=== PATIENT | male | born 2000 | race Caucasian/White ===

== ENCOUNTER 2021-01-25 23:48 | Observation (INO) | payer SELFPAY ==
[2021-01-25 23:51] VITALS: BP 138/76; PULSE 90; RESP 16; TEMP 36.8; O2SAT 98; BMI 31.8
[2021-01-26] VITALS (7 sets, daily range): BP systolic 104–136; BP diastolic 58–84; PULSE 41–98; RESP 14–18; TEMP 36.7–37; O2SAT 96–100
[2021-01-26 00:10] LABS: Basophils % 0.4 %; Eosinophils # 0.1 10^3/uL (0.0-0.8); Eosinophils % 0.8 %; Hematocrit 47.4 % (42.0-52.0); Lymphocytes # 1.2 10^3/uL (1.5-6.5); Lymphocytes % 12.6 %; Mean Corpuscular HGB Conc 33.8 g/dL (30.0-36.0); Mean Corpuscular Hemoglobin 29.5 pg (28.0-34.0); Mean Corpuscular Volume 87.3 fL (80-94); Mean Platelet Volume 11.4 fL (7.4-10.4); Monocytes # 0.5 10^3/uL (0.2-0.9); Monocytes % 4.8 %; Neutrophils # 7.64 10^3/uL (1.8-8.0); Neutrophils % 81.1 %; Nucleated Red Blood Cells % 0 %; Platelet Count 252 10^3/cmm (130-400); Red Blood Count 5.43 10^6/uL (4.1-5.3); White Blood Count 9.4 10^3/uL (4.5-13.0)
--- NOTE | 2021-01-26 00:13 | W.ED.PSYCH ---
Documented by User: DEBRA Chávez 01/26/21 01:24 HPI - Psych General: Chief Complaint: Psychiatric Symptoms Stated Complaint: SI Time Seen by Provider: 01/25/21 23:53 Source: patient Mode of arrival: EMS Limitations: no limitations History of Present Illness: HPI Narrative: Patient is a 20-year-old male who presents to ED today for with a complaint of suicidal ideations. Patient tells me he has several life stressors including being shunned from friends and family and a girlfriend who apparently left him this evening. He tells me he has no specific plan. He does have a history of self harming behaviors. No previous suicide attempts. Patient is tearful during exam. He admits to occasional alcohol use. Denies drug use MD complaint: suicidal ideation and feels depressed Onset (ago): day(s) Duration: constant History of same: Yes Relieving factors: none Context: significant life stressor Associated psychiatric symptoms: depression and suicidal ideation Associated symptoms: Reports suicidal ideation; Deny auditory hallucinations, visual hallucinations, depression or homicidal ideation Treatments prior to arrival: none If self harm: admits thoughts of self harm Review of Systems Const: Denies: fever(s) or chills Card: Denies: chest pain, palpitations, lightheadedness or syncope Resp: Denies: dyspnea GI: Denies: abdominal pain, nausea, vomiting or diarrhea Skin/Breast: Denies: rash Neuro: Denies: headache(s) Psych: Reports: hopelessness and suicidal ideation; Denies: anxiety, depression, panic attacks, paranoia, visual hallucinations, auditory hallucinations or homicidal ideation Physical Exam Const: COMMON NORMALS: no acute distress, patient oriented x3, alert and well nourished GENERAL APPEARANCE: cooperative and well kempt Resp: COMMON NORMALS: normal respiratory effort and clear to auscultation bilaterally AUSCULTATION: clear to auscultation bilaterally Cardio: COMMON NORMALS: regular rate and regular rhythm RATE: regular rate RHYTHM: regular rhythm Neuro: COMMON NORMALS: patient oriented x3 SENSORIUM/ORIENTATION: Yes alert Psych: COMMON NORMALS: mental status grossly normal, Normal thought process present, cooperative, normal affect, speech normal, activity/motor behavior normal, denies hallucinations and denies homicidal ideation APPEARANCE: Yes grossly normal and Yes well kempt ATTITUDE: Yes calm ACTIVITY/MOTOR BEHAVIOR: Yes appropriate eye contact and No psychomotor agitation SPEECH: Yes normal speech MOOD & AFFECT: Yes sad and Yes tearful THOUGHT PROCESS: Normal thought process present THOUGHT CONTENT: Yes Normal thought content present ATTENTION/CONCENTRATION: Yes attention grossly intact and Yes concentration grossly intact MEMORY/COGNITION: Yes memory grossly intact and Yes cognition grossly intact INSIGHT: Good insight present (Psych) JUDGEMENT: Good judgement present (Psych) Course Consultations: Consultation #1: Dr. Wright-accepts to [facility] Vital Signs: Vital signs: Vital Signs Temperature 98.3 F 01/25/21 23:51 Pulse Rate 90 01/25/21 23:51 Respiratory Rate 16 01/25/21 23:51 Blood Pressure 138/76 01/25/21 23:51 Pulse Oximetry 98 01/25/21 23:51 MDM - Psych MDM Narrative: Medical decision making narrative: Patient wants to go to [facility] voluntarily. Lab Data: Labs: Lab Results 01/25/21 01/25/21 01/26/21 Range/Units 23:59 23:59 01:09 WBC 9.4 (4.5-13.0) 10^3/ uL RBC 5.43 H (4.1-5.3) 10^6/u L Hgb 16.0 (11.7-16.6) g/dL Hct 47.4 (42.0-52.0) % MCV 87.3 (80-94) fL MCH 29.5 (28.0-34.0) pg MCHC 33.8 (30.0-36.0) g/dL RDW 12.0 L (12.1-15.1) % Plt Count 252 (130-400) 10^3/c mm MPV 11.4 H (7.4-10.4) fL Neut % (Auto) 81.1 % Lymph % (Auto) 12.6 % [place] % (Auto) 4.8 % Eos % (Auto) 0.8 % Baso % (Auto) 0.4 % Neut # (Auto) 7.64 (1.8-8.0) 10^3/u L Lymph # (Auto) 1.2 L (1.5-6.5) 10^3/u L [place] # (Auto) 0.5 (0.2-0.9) 10^3/u L Eos # (Auto) 0.1 (0.0-0.8) 10^3/u L Baso # (Auto) 0.0 (0.0-0.1) 10^3/u L Nucleated RBC % (a uto) 0 % Nucleated RBCs # 0.0 /100WBC Sodium 139 (136-145) mmol/L Potassium 4.0 (3.5-5.1) mmol/L Chloride 102 (98-107) mmol/L Carbon Dioxide 26 (22-29) mmol/L Anion Gap 15.0 (5-19) BUN 8 (6-20) mg/dL Creatinine 0.7 (0.7-1.2) mg/dL GFR Calculation 143.8 H (90-130) mL/min Glucose 108 (65-115) mg/dL Calculated Osmolal ity 287 (285-295) mOsm/k g Calcium 8.8 (8.5-10.5) mg/dL Total Bilirubin 0.5 (0.15-1.2) mg/dL AST 20 (0-40) U/L ALT 20 (0-41) U/L Alkaline Phosphata se 83 (40-130) IU/L Total Protein 6.9 (6.6-8.7) g/dL Albumin 4.5 (3.5-5.2) g/dL Globulin 2.4 (1.3-4.6) g/dL Salicylates < 0.3 L (3-10) mg/dL Urine Opiates Scre en Negative (Negative) ng/mL Acetaminophen < 5.0 L (10-30) ug/mL Ur Barbiturates Sc reen Negative (Negative) ng/mL Ur Phencyclidine S crn Negative (Negative) ng/mL Ur Amphetamines Sc reen Negative (Negative) ng/mL U Benzodiazepines Scrn Negative (Negative) ng/mL Urine Cocaine Scre en Negative (Negative) ng/mL U Marijuana (THC) Screen Negative (Negative) ng/mL Ethyl Alcohol < 10 (0-10) mg/dL Discharge Plan Discharge Patient Disposition: Admitted As Inpatient Clinical Impression: Suicidal ideation Condition: Stable Coding Level of Care Code ED Cut In Station Operator for Joanng Fwd Exam Expanded Problem Focused Documented by User: Lazarojose luis Trujillo DO 01/26/21 02:28 HPI - Psych General: Chief Complaint: Psychiatric Symptoms Stated Complaint: SI Time Seen by Provider: 01/25/21 23:53 Course Vital Signs: Vital signs: Vital Signs Temperature 98.3 F 01/25/21 23:51 Pulse Rate 90 01/25/21 23:51 Respiratory Rate 16 01/25/21 23:51 Blood Pressure 138/76 01/25/21 23:51 Pulse Oximetry 98 01/25/21 23:51 MDM - Psych MDM Narrative: Medical decision making narrative: 20-year-old male originally seen by Mrs. Sosa?MISSY Arriola. I agree with her history, evaluation, and treatment. Having suicidal ideations, with calm and cooperative during his ER stay. He is admitted to the [facility] after being determined medically stable. Lab Data: Labs: Lab Results 01/25/21 01/25/21 01/26/21 Range/Units 23:59 23:59 01:09 WBC 9.4 (4.5-13.0) 10^3/ uL RBC 5.43 H (4.1-5.3) 10^6/u L Hgb 16.0 (11.7-16.6) g/dL Hct 47.4 (42.0-52.0) % MCV 87.3 (80-94) fL MCH 29.5 (28.0-34.0) pg MCHC 33.8 (30.0-36.0) g/dL RDW 12.0 L (12.1-15.1) % Plt Count 252 (130-400) 10^3/c mm MPV 11.4 H (7.4-10.4) fL Neut % (Auto) 81.1 % Lymph % (Auto) 12.6 % [place] % (Auto) 4.8 % Eos % (Auto) 0.8 % Baso % (Auto) 0.4 % Neut # (Auto) 7.64 (1.8-8.0) 10^3/u L Lymph # (Auto) 1.2 L (1.5-6.5) 10^3/u L [place] # (Auto) 0.5 (0.2-0.9) 10^3/u L Eos # (Auto) 0.1 (0.0-0.8) 10^3/u L Baso # (Auto) 0.0 (0.0-0.1) 10^3/u L Nucleated RBC % (a uto) 0 % Nucleated RBCs # 0.0 /100WBC Sodium 139 (136-145) mmol/L Potassium 4.0 (3.5-5.1) mmol/L Chloride 102 (98-107) mmol/L Carbon Dioxide 26 (22-29) mmol/L Anion Gap 15.0 (5-19) BUN 8 (6-20) mg/dL Creatinine 0.7 (0.7-1.2) mg/dL GFR Calculation 143.8 H (90-130) mL/min Glucose 108 (65-115) mg/dL Calculated Osmolal ity 287 (285-295) mOsm/k g Calcium 8.8 (8.5-10.5) mg/dL Total Bilirubin 0.5 (0.15-1.2) mg/dL AST 20 (0-40) U/L ALT 20 (0-41) U/L Alkaline Phosphata se 83 (40-130) IU/L Total Protein 6.9 (6.6-8.7) g/dL Albumin 4.5 (3.5-5.2) g/dL Globulin 2.4 (1.3-4.6) g/dL Salicylates < 0.3 L (3-10) mg/dL Urine Opiates Scre en Negative (Negative) ng/mL Acetaminophen < 5.0 L (10-30) ug/mL Ur Barbiturates Sc reen Negative (Negative) ng/mL Ur Phencyclidine S crn Negative (Negative) ng/mL Ur Amphetamines Sc reen Negative (Negative) ng/mL U Benzodiazepines Scrn Negative (Negative) ng/mL Urine Cocaine Scre en Negative (Negative) ng/mL U Marijuana (THC) Screen Negative (Negative) ng/mL Ethyl Alcohol < 10 (0-10) mg/dL Discharge Plan Discharge Patient Disposition: Admitted As Inpatient Clinical Impression: Suicidal ideation Condition: Stable Coding Level of Care Code ED Cut In Station Operator for Chg Fwd Exam Expanded Problem Focused
[2021-01-26 00:42] LABS: Alanine Aminotransferase 20 U/L (0-41); Albumin Level 4.5 g/dL (3.5-5.2); Alkaline Phosphatase 83 IU/L (40-130); Aspartate Amino Transferase 20 U/L (0-40); Blood Urea Nitrogen 8 mg/dL (6-20); Calcium 8.8 mg/dL (8.5-10.5); Carbon Dioxide 26 mmol/L (22-29); Chloride 102 mmol/L (98-107); Globulin 2.4 g/dL (1.3-4.6); Glomerular Filtration Rate 143.8 mL/min (90-130); Glucose 108 mg/dL (65-115); Osmolality Calculated 287 mOsm/kg (285-295); Sodium 139 mmol/L (136-145); Total Bilirubin 0.5 mg/dL (0.15-1.2); Total Protein 6.9 g/dL (6.6-8.7)
[2021-01-26 00:45] LABS: Acetaminophen < 5.0 ug/mL (10-30); Alcohol Level < 10 mg/dL (0-10); Salicylate < 0.3 mg/dL (3-10)
[2021-01-26 01:37] LABS: Amphetamines Screen Urine Negative (Negative); Barbiturates Screen Urine Negative (Negative); Benzodiazepines Screen Urine Negative (Negative); Cocaine Screen Urine Negative (Negative); Opiate Screen Urine Negative (Negative); PCP Screen Urine Negative (Negative); THC Screen Urine Negative (Negative)
[2021-01-26] MEDS: hyDROXYzine 25 mg Capsule 50 MG PO (12:36)
--- NOTE | 2021-01-26 12:37 | PC.NURSE ---
Administered Vistaril 50mg PO for increasing anxiety. Patient has been in his room sitting on the floor crying and then he paces the hallways. Nurse will continue to monitor.
[2021-01-26] MEDS: nicotine 2 mg Gum BUCCAL (18:36)
--- NOTE | 2021-01-26 18:55 | P.SS_ITS ---
Short Stay Summary Providers Date of Admit/Discharge: 01/27/21 Attending Provider: Anthony Wright MD Chief Complaint: SI HPI History of Present Illness LIT BRISENO is a 20 year old male who presented to the emergency department with the following report: Chief Complaint: Psychiatric Symptoms Stated Complaint: SI Time Seen by Provider: 01/25/21 23:53 Source: patient Mode of arrival: EMS Limitations: no limitations History of Present Illness: HPI Narrative: Patient is a 20-year-old male who presents to ED today for with a complaint of suicidal ideations. Patient tells me he has several life stressors including being shunned from friends and family and a girlfriend who apparently left him this evening. He tells me he has no specific plan. He does have a history of self harming behaviors. No previous suicide attempts. Patient is tearful during exam. He admits to occasional alcohol use. Denies drug use complaint: suicidal ideation and feels depressed Onset (ago): day(s) Duration: constant History of same: Yes Relieving factors: none Context: significant life stressor Associated psychiatric symptoms: depression and suicidal ideation Associated symptoms: Reports suicidal ideation; Deny auditory hallucinations, visual hallucinations, depression or homicidal ideation Treatments prior to arrival: none If self harm: admits thoughts of self harm. He was admitted to the neuropsychiatric unit for definitive treatment of those issues. Lit presents today reporting that he is never been in a psychiatric hospital, he is never really been on psychiatric medications, he is never really had a therapist or any kind of outpatient treatment. He denies any history of suicide attempts. He reports that everything, got out of hand with his living situation. He reports he got in a fight/argument with some friend and her family. He had been living there for a little while and is not even from this area. A reports just being sad and they want to go home. He reports that he said something that should have said and gave the impression that he was suicidal but he denies having any suicidal thinking at this time and reports he just will struggling with his anger. He denies any desire for inpatient hospitalization. He denies any interest in exploring medications for anger management or any of those tendencies. He noted that he is a voluntary patient and would like to discharge if at all possible. Psychiatric history: As above. Substance abuse history: He reports that he smokes about a pack of cigarettes every 6 days or so, he has alcohol once a while, he denies marijuana use or any other illicit drug use he is never been to rehab and never had a DUI. Family history: Endorses mental health and addiction issues on his father side and endorsed that his father had some suicide attempts but denies other family history. Developmental history: He denies any issues with his mother's with him no other problems with the or delivery. Walking talk to met developmental milestones on time but we did have to have a surgery to fix his colon and rectum as well 3-month-old. He endorses that he may have had some speech therapy and was in special education classes. Psychosocial history: He reports his mother and father were but they got later on. That he has not older sibling and a younger sibling there is a product of the same union having a brother and a sister. He denies having any other half siblings through his mom and had a half brother through his dad is now . He reports his childhood was same ole and there was no emotional, physical or sexual abuse. 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 He endorses being a heterosexual but is not sure how long the relationship has been. He is never , has never had biological children, he is never been in the and he denies any congregational Chris system. He reports his longest employment was over a year [employer]. He currently is trying to figure out his living situation is going to be. Legal history: He denies ever being in [facility] or having major legal peril. Medical history: He denies any significant medical issues. Mental status examination: This is an overweight versus obese white male in hospital scrubs with limited eye contact and adequate grooming. No abnormal movements except for mild psychomotor retardation. Cooperative with exam in mild to moderate distress. Speech was decreased rate and volume and childlike. Mood described as almost canceled to go home, affect sad. Thought process organized. Thought content: Patient denied suicidal or homicidal ideation, there were no delusions reported or noted, he denied any auditory or visual hallucinations. Attention and co ncentration appeared intact and memory was mostly reliable but none were formally tested. He is alert and oriented x3. Insight and judgment are fair, impulse control is limited, and intellectual ability was limited versus impaired. Assessment/plan: This is a 20-year-old white male with a long history of intellectual limitations but denying significant history of mental health treatment who presents with a conflict with his living arrangement which he reports led to him making suicidal threats he currently denies and he is interested in discharge. 1. Continue current medication. 2. Continue every 15 minute checks for safety. 3. Encourage individual, group and milieu therapies. 4. We will get collateral information to ensure there are no concerns about his safety but should be a limiting factor and otherwise allowed to discharge. Home Meds/Allergies Home Medications and Allergies Home Medications Medication Instructions Recorded Confirmed Type No Known Home Medications 01/25/21 01/25/21 History Allergies Allergy/AdvReac Type Severity Reaction Status Date / Time No Known Allergies Allergy Verified 01/25/21 23:51 Vitals/I&O/Wt Last Vital Signs Temp 98.6 F 01/26/21 14:00 Pulse 59 L 01/26/21 14:00 Resp 16 01/26/21 14:00 BP 117/70 01/26/21 14:00 Pulse Ox 98 01/26/21 14:00 Weight last 48 hrs Weight 81.647 kg Diagnoses at Discharge Discharge Diagnosis (1) Suicidal ideation: Status: Acute (2) Adjustment disorder with mixed disturbance of emotions and conduct: Status: Acute (3) Intellectual disability: Status: Acute (4) Borderline intellectual functioning: Status: Acute Discharge Plan Discharge Patient Disposition: Home Condition: Stable Prescriptions: Continued No Known Home Medications RF: 0 Discharge Orders: Discharge Order (Routine); Ordered 01/26/21 Ordered By: Anthony Wright Discharge Diet: Regular Discharge Activity: Resume usual activity Patient Instructions: Opioid Safety Attestations Medical Necessity Statement*: Inpatient hospitalization is no longer medically necessary or the clinically appropriate event at this time. Patient would benefit from inpatient assistance but is a voluntary patient lacking credible lethality so he will be allowed to discharge. Time Spent in Patient Care*: greater than 30 min Specific Discharge Activities: Specific discharge activities: educating patient, discussing with foster care case manager/social workers/dc planners, documenting/other paperwork and evaluating patient/reviewing data Status at Discharge: Cognitive status at discharge: mildly impaired cognition , Behavioral status at discharge: cooperative , Functional status at discharge: independent ambulation Overall status at discharge: patient is back to baseline Quality Metrics Clinical Quality Measures: During this hospital stay, did patient experience: None Coding Level of Care Code Acute [employer] Rep for Chg Fwd Diagnoses Suicidal ideation R45.851 Adjustment disorder with mixed disturbance of emotions and conduct F43.25 Intellectual disability F79 Borderline intellectual functioning R41.83
[2021-01-26] MEDS: blistex lip oint 7 gm Tube 1 APPLIC TOPICAL (22:02)
[2021-01-27 06:00] VITALS: BP 102/63; PULSE 80; RESP 18; TEMP 36.6; O2SAT 98
== END 2021-01-27 11:26 | disposition home or self-care (01) ==
LOC: ER 01-26 01:23 → NP 01-26 05:46
PROVIDERS: Physician Assistant; Admitting Provider Psychiatry & Neurology Psychiatry; Emergency Provider Emergency Medicine; Visit Provider Psychiatry & Neurology Psychiatry
DX: R45.851 Suicidal ideations (principal); F43.25 Adjustment disorder with mixed disturbance of emotions and conduct; F79 Unspecified intellectual disabilities; R41.83 Borderline intellectual functioning
CPT/HCPCS: 80053; 80306; 80307; 85025; 99285; G0378